=== PATIENT | female | born 1965 | race Caucasian/White ===

== ENCOUNTER 2019-02-10 01:49 | Inpatient (IN) | payer OTHER ==
[~2019-02-10] VITALS: Ht 154.9 cm; Wt 82.1 kg
[2019-02-10] MEDS ORDERED: ASPIRIN 81MG TABLET PO ONE (02:45)
[2019-02-10] MEDS ORDERED: NITROGLYCERIN 0.4MG TABLET SL SL PRN (02:45)
[2019-02-10 03:07] LABS: CHLORIDE 106 mEq/L (98-107)
[2019-02-10 03:16] LABS: BASOPHILS % 0.7 % (0.0-2.0); EOSINOPHILS % 3.3 % (0.0-5.0); HEMATOCRIT. 41.2 % (36.0-48.0); LYMPHOCYTES % 30.1 % (20.0-50.0); MEAN CORPUSCULAR HEMOGLOBIN 27.4 pg (28.0-32.0); MEAN CORPUSCULAR VOLUME 80.7 fL (81.0-99.0); MEAN PLATELET VOLUME 8.2 fl (7.4-10.4); NEUTROPHILS % 60.9 % (40.0-76.0); PLATELET 229 x1000/uL (130-400); RED CELL DISTRIBUTION WIDTH 13.2 % (11.6-14.6)
[2019-02-10 08:20] VITALS: BP 151/80
[2019-02-10] MEDS ORDERED: ASPI-1159 MT (08:31)
[2019-02-10] MEDS ORDERED: AMLO10TA80 MT (08:31)
[2019-02-10] MEDS ORDERED: ACETAMINOPHEN 650MG/20.3ML UDC PO PRN (09:30)
[2019-02-10] MEDS ORDERED: AMLODIPINE 10MG TABLET PO SCH (09:30)
[2019-02-10] MEDS ORDERED: REGADENOSON 0.4 MG/5 ML IV ONE ×2 (09:45→11:54)
[2019-02-10 11:05] LABS: T4 FREE 1.01 ng/dL (0.76-1.46)
[2019-02-10 12:00] VITALS: BP 128/83
[2019-02-10 15:36] LABS: CREATINE KINASE 93 IU/L (26-192)
[2019-02-10 15:37] LABS: CREATINE KINASE MB FRACTION 1.6 ng/mL (0.5-3.6)
[2019-02-10 16:00] VITALS: BP 120/78
[2019-02-10 16:06] LABS: *AMPHETAMINES SCREEN URINE NEGATIVE (NEGATIVE); *BARBITURATES SCREEN URINE NEGATIVE (NEGATIVE)
[2019-02-10 16:07] LABS: *BENZODIAZEPINES SCREEN URINE NEGATIVE (NEGATIVE); *COCAINE SCREEN URINE NEGATIVE (NEGATIVE); CANNABINOID URINE SCREEN NEGATIVE (NEGATIVE); METHADONE URINE SCREEN NEGATIVE (NEGATIVE); OPIATES URINE SCREEN NEGATIVE (NEGATIVE); PHENCYCLIDINE URINE SCREEN NEGATIVE (NEGATIVE)
[2019-02-10 17:00] VITALS: BP 120/78
[2019-02-11] MEDS ORDERED: ASPIRIN 81MG TABLET PO SCH (09:00)
== END 2019-02-10 17:25 | disposition home or self-care (01) | DRG 203 ==
LOC: ER 02:38 → 6WST 05:22 → EDBEDREQTM 05:23 → EDBEDREQ 05:23 → ENRESERV 07:11
PROVIDERS: ADMIT Internal Medicine; ATTEND Internal Medicine
DX: R07.89 Other chest pain (principal); E66.9 Obesity, unspecified; E78.00 Pure hypercholesterolemia, unspecified; E78.5 Hyperlipidemia, unspecified; I10 Essential (primary) hypertension; G89.29 Other chronic pain; M54.9 Dorsalgia, unspecified; R11.2 Nausea with vomiting, unspecified; Z83.3 Family history of diabetes mellitus; Z68.34 Body mass index [BMI] 34.0-34.9, adult
CPT/HCPCS: 36415; 71045; 71275; 78452; 80061; 80305; 82550; 82553; 83036; 83880; 84439; 84443; 84484; 85379; 93005; 93017; 93306; 99285; A9500; J2785